=== PATIENT | female | born 1940 | race Caucasian/White ===

== ENCOUNTER 2016-12-23 08:23 | Inpatient (IN) | payer OTHER ==
[~2016-12-23] VITALS: Ht 162.6 cm; Wt 62.9 kg
[~2016-12-23 08:23] MED LIST: ACETAMINOPHEN325 M1 PO; AMLODIPINE BESYL5 MG PO; ATORVASTATIN CA20 MG PO; BISAC-EVAC10 MG PR; CALCIUM 600 +1 EAC1 PO; CALTRATE 600 +1 EACH PO; DULCOLAX10 MG PR; LEVAQUIN750 MG PO; LIPITOR20 MG PO; SILACE50 MG/5 ML PO; SYNTHROID88 MCG PO
[2016-12-23 09:39] LABS: EOSINOPHIL (%) 1.8 % (0-5); EOSINOPHIL COUNT 0.1 K/uL (0-0.3); HEMATOCRIT 46.1 % (36.0-46.0); IMMATURE GRANULOCYTE (%) 1.5 % (0.0-0.7); IMMATURE GRANULOCYTE COUNT 0.1 K/uL; INSTRUMENT ABS NEUTROPHIL CT 3.5 K/uL; LYMPHOCYTE COUNT 2.1 K/uL (1.0-2.8); MCH 29.9 PG (29.0-34.0); MCHC 31.5 G/DL (30.0-36.0); MCV 95.1 FL (83-99); MEAN PLAT.VOLUME 10.1 uM^3 (9.5-12.4); MONOCYTE (%) 3.5 % (3-12); MONOCYTE COUNT 0.2 K/uL (0-0.8); NEUTROPHIL (%) 58.1 % (45-76); NEUTROPHIL COUNT 3.5 K/uL (1.8-6.4); PLATELET COUNT 211 K/uL (156-360); RBC DIS.WIDTH-SD 42.1 % (39-53); RED BLOOD COUNT 4.85 M/uL (3.80-5.20)
[2016-12-23 09:50] LABS: CHLORIDE 105 mEq/L (99-109); POTASSIUM 3.8 mEq/L (3.7-5.4); SODIUM 142 mEq/L (136-147)
[2016-12-23 09:52] LABS: GLUCOSE 196 mg/dL (70-99)
[2016-12-23 09:53] LABS: ANION GAP 26 MEQ/L (2-14)
[2016-12-23 09:54] LABS: TOTAL BILIRUBIN 0.3 mg/dL (0.0-1.0)
[2016-12-23 09:55] LABS: ALKALINE PHOSPHATASE 76 IU/L (3-129)
[2016-12-23 09:56] LABS: GFR ESTIMATE (CALCULATED) 46 mL/min/
[2016-12-23 09:57] LABS: UREA NITROGEN (BUN) 15 mg/dL (9-23)
[2016-12-23] MEDS ORDERED: QUETIAPINE FUMA25 MG PO (13:02)
[2016-12-23] MEDS ORDERED: DULCOLAX10 MG PR (13:03)
[2016-12-23 20:22] VITALS: BP 118/57
[2016-12-24 00:32] VITALS: BP 110/57
[2016-12-24 06:49] LABS: ANION GAP 5 MEQ/L (2-14); CHLORIDE 109 MEQ/L (99-109); GFR ESTIMATE (CALCULATED) > 59 mL/min/; POTASSIUM 3.9 MEQ/L (3.7-5.4); SAMPLE HEMOLYSIS CHECK 0; SAMPLE ICTERIC CHECK 0; SAMPLE LIPEMIA CHECK 0; SODIUM 139 MEQ/L (136-147); UREA NITROGEN (BUN) 10 mg/dL (9-23)
[2016-12-24 06:50] LABS: GLUCOSE 112 mg/dL (70-99)
[2016-12-24 07:08] LABS: HEMATOCRIT 35.5 % (36.0-46.0); MCH 30.7 PG (29.0-34.0); MCHC 33.5 G/DL (30.0-36.0); MCV 91.7 FL (83-99); RBC DIS.WIDTH-CV 12.3 % (11.8-14.6); RBC DIS.WIDTH-SD 41.3 % (39-53); WHITE BLOOD COUNT 7.7 K/uL (4.1-10.2)
[2016-12-24 07:12] LABS: PLAT.SUFFICIENCY DECREASED; PLATELET CLUMPS PRESENT - PLATELET COUNT APPEARS ADQ.
[2016-12-24 07:33] VITALS: BP 102/65
[2016-12-24 07:38] LABS: PLATELET COUNT UNABLE TO REPORT K/uL (156-360); RED BLOOD COUNT 3.87 M/uL (3.80-5.20)
[2016-12-24 12:12] VITALS: BP 117/62
[2016-12-24 15:15] VITALS: BP 119/57
[2016-12-24 20:47] VITALS: BP 117/56
[2016-12-24 23:27] VITALS: BP 103/74
[2016-12-25 04:31] VITALS: BP 119/58
[2016-12-25 06:36] LABS: ANION GAP 6 MEQ/L (2-14); CHLORIDE 111 MEQ/L (99-109); GFR ESTIMATE (CALCULATED) > 59 mL/min/; GLUCOSE 101 mg/dL (70-99); POTASSIUM 3.7 MEQ/L (3.7-5.4); SAMPLE HEMOLYSIS CHECK 0; SAMPLE ICTERIC CHECK 0; SAMPLE LIPEMIA CHECK 0; SODIUM 142 MEQ/L (136-147); UREA NITROGEN (BUN) 6 mg/dL (9-23)
[2016-12-25 07:05] VITALS: BP 116/72
[2016-12-25 11:00] VITALS: BP 121/81
[2016-12-25 15:25] VITALS: BP 131/76
[2016-12-25 20:00] VITALS: BP 105/57
[2016-12-25 23:09] VITALS: BP 125/58
[2016-12-26 04:57] VITALS: BP 114/56
[2016-12-26 08:30] VITALS: BP 116/60
[2016-12-26 09:31] LABS: ANION GAP 9 MEQ/L (2-14); CHLORIDE 111 MEQ/L (99-109); GFR ESTIMATE (CALCULATED) > 59 mL/min/; GLUCOSE 95 mg/dL (70-99); POTASSIUM 3.8 MEQ/L (3.7-5.4); SAMPLE HEMOLYSIS CHECK 0; SAMPLE ICTERIC CHECK 0; SAMPLE LIPEMIA CHECK 0; SODIUM 144 MEQ/L (136-147); UREA NITROGEN (BUN) 7 mg/dL (9-23)
[2016-12-26 12:00] VITALS: BP 143/72
[2016-12-26] MEDS ORDERED: LEVETIRACETAM500 MG PO (12:22)
[2016-12-26 15:58] VITALS: BP 127/82
== END 2016-12-26 17:42 | disposition home or self-care (01) | DRG 101 ==
LOC: EME → EDBD 08:23 → EDOF 11:20 → 5EAST 11:20 → ENRESERV 11:27 → 5EAST 16:57
PROVIDERS: Emergency Medicine; Family Medicine
DX: G40.409 Other generalized epilepsy and epileptic syndromes, not intractable, without status epilepticus (principal); F72 Severe intellectual disabilities; I10 Essential (primary) hypertension; E78.5 Hyperlipidemia, unspecified; E03.9 Hypothyroidism, unspecified; E87.2 Acidosis; Z66 Do not resuscitate
CPT/HCPCS: 36600; 70450; 70551; 71010; 80048; 80053; 82803; 82948; 85025; 85027; 93005; 99281; 99285; J1650; J1953; J2060; J7030; J7050